=== PATIENT | male | born 1985 | race Caucasian/White ===

== ENCOUNTER 2022-07-08 12:28 | Emergency (ER) | payer OTHER ==
[2022-07-08] MEDS ORDERED: cefTRIAXone\\ROCEPHIN 500 MG VIAL ONE (15:15)
[2022-07-08] MEDS ORDERED: Ketorolac Tromethamine 30 MG/ML VIAL ONE (15:16)
[2022-07-08] MEDS ORDERED: Lidocaine 1% PF 5 ML VIAL ONE (15:17)
[2022-07-08 15:30] LABS: Bilirubin Neg (Negative); Blood, Urine Negative (Negative); Clarity Clear (Clear); Glucose, Urine (Dipstick) Normal (Negative); Ketone, Urine Negative (Negative); Leukocyte Negative (Negative); Nitrite Negative (Negative); Protein, Urine (Dipstick) 15 mg/dl (Neg-Trace); Urobilinogen Normal mg/dL (Less than 2)
[2022-07-09 10:34] LABS: Chlam.trachomatis by PCR,Urine Not Detected (NotDetected)
== END 2022-07-08 16:28 | disposition home or self-care (01) ==
LOC: CSHERS 12:28
DX: N45.3 Epididymo-orchitis (principal)
CPT/HCPCS: 76870; 81003; 87086; 87491; 87591; 93976; 96372; J0696; J1885